=== PATIENT | female | born 1940 | race American Indian/Alaskan Native ===

== ENCOUNTER 2025-06-19 09:27 | Day surgery (SDC) | payer MEDICARE, MEDICAID ==
[2025-06-11 11:06] LABS: MEAN PLATELET VOLUME 8.3 FL (7.4-10.4); RED CELL DISTRIBUTION WIDTH 14.9 % (11.5-14.5)
[2025-06-11 11:24] LABS: CREATININE 1.36 MG/DL (0.40-0.90); TOTAL CARBON DIOXIDE 22.9 MMOL/L (24-32); eGFR 37 ML/MIN
[~2025-06-19] VITALS: Ht 162.6 cm; Wt 69.4 kg
[~2025-06-19 09:27] MED LIST: CARV-50 PO; DOCUMENT DATE & TIME OF BETA-BLOCKER PO ONE; ESOM40CA49 PO; GABA300T28 PO; INSU100I31 SQ; LISI20TA28 PO; MAGN500T2 PO; METF500T PO; ONDA-243 PO; ROPI1TAB47 PO; ROSU10TA2 PO; SERT50TA PO; SITA50TA PO; levoFLOXACIN-Levaquin 500mg/D5 100 ML IV ONE; ringers solution, lacted 1,000 ML IV SCH
== END 2025-06-19 11:06 | disposition home or self-care (01) ==
LOC: PAS 09:27
PROVIDERS: ATTEND Surgery
DX: R92.8 Other abnormal and inconclusive findings on diagnostic imaging of breast (principal); Z53.8 Procedure and treatment not carried out for other reasons
CPT/HCPCS: 36415; 80053; 84132; 85025; J1956; J7120